=== PATIENT | female | born 1935 | race Caucasian/White ===

== ENCOUNTER 2019-12-03 17:44 | Observation (INO) | payer MEDICARE, SELFPAY ==
[2019-12-03] VITALS (10 sets, daily range): BP systolic 130–138; BP diastolic 51–92; PULSE 73–92; RESP 18–33; TEMP 36.1–37.3; O2SAT 92–100; BMI 25.6
--- NOTE | ~2019-12-03 | CT_ITS ---
EXAMINATION: CT brain wo con EXAM DATE: 12/03/2019 19:54 INDICATION: Weakness. TECHNIQUE: Spiral CT of the head was performed without contrast. Axial, coronal and sagittal images were reviewed. The dose-length product (DLP) for this examination was 605.33 mGy-cm. The exposure w as tailored according to patient size, and iterative reconstruction (ASIR) was used as additional dos e reduction technique. Comparison is made to prior examination from 09/25/2011. FINDINGS: There is no acute intraparenchymal hemorrhage. No evidence of intraparenchymal brain mass lesion. No evidence of acute infarction. Please note that initial head CT has limited sensitivity f or small or acute infarctions. There is mild periventricular and subcortical hypodensity, nonspecific but probably related to small vessel ischemic disease. There is mild prominence of the sulci and v entricles related to cerebral atrophy. There is intracranial carotid arteriosclerosis. There are n o extra-axial collections. There is no mass effect or midline shift. Patient has had bilateral ocul ar lens surgery. Soft tissue is unremarkable. Right-sided mastoid effusion. Sinuses are well aerate d. IMPRESSION: 1. No acute intracranial findings. 2. Chronic age related findings. 3. Right otomastoiditis fusion Reviewed, dictated and finalized at location A.
--- NOTE | ~2019-12-03 | XR_ITS ---
EXAMINATION: XR chest 1V portable EXAM DATE: 12/03/2019 18:59 INDICATION: Weakness, fever. History COPD, CHF. TECHNIQUE: Portable AP frontal chest x-ray was obtained. Comparison is made to prior examination from 07/11/2016. FINDINGS: Patient is rotated to the right. There is cardiomegaly. Cardiac silhouette is larger than o n prior study. No confluent consolidation, pneumothorax or pleural effusion suspected. The bones are osteopenic. There are bony degenerative changes. IMPRESSION: 1. Cardiomegaly. Reviewed, dictated and finalized at location A. IMPRESSION: 1. Cardiomegaly.
--- NOTE | 2019-12-03 17:44 | ED.FEVER ---
HPI - Fever General Chief Complaint: Shortness of Breath/Dyspnea <Danita Cannon MD - Last Filed: 12/03/19 19:47> Stated Complaint: Weakness, fever <Danita Cannon MD - Last Filed: 12/03/19 19:47> Time Seen by Provider: 12/03/19 17:44 <Danita Cannon MD - Last Filed: 12/03/19 19:47> Source: patient and family <Danita Cannon MD - Last Filed: 12/03/19 19:47> Mode of arrival: EMS <Danita Cannon MD - Last Filed: 12/03/19 19:47> Limitations: clinical condition <Danita Cannon MD - Last Filed: 12/03/19 19:47> History of Present Illness HPI Narrative: Patient is an 84-year-old female with a history of COPD who presents for evaluation of altered mental status, fever. Patient daughter is providing most of the history. She states that she has had 48 to 72 hours of intermittent altered mental status from her baseline. Daughter states patient is usually very sharp, but has had increased confusion. Patient currently is alert and oriented to person, place and time. She is denying any headache, chest pain or abdominal pain. Chart for reports feeling diffusely weak. She denies any new productive cough or worsening shortness of breath. She reports subjective fever. Daughter is concerned that perhaps the patient has a urinary tract infection. No recent sick exposures. No known COVID exposures. Patient has stayed mostly at home, family provides much support. Patient is DNR/DNI. <Danita Cannon MD - Last Filed: 12/03/19 19:47> Related Data Home Medications: Home Medications Medication Instructions Recorded Confirmed bupropion HCl 300 mg 24 hr tablet, 300 mg PO .qd tablet 05/21/19 extended release dorzolamide 2 % eye drops 1 drop EACH EYE TID 05/21/19 escitalopram oxalate 20 mg tablet 10 mg PO DAILY 05/21/19 latanoprost 0.005 % eye drops 1 drop EACH EYE QPM 05/21/19 levalbuterol HCl 1.25 mg/3 mL 1.25 mg INHALATION Q12H ml 05/21/19 solution for nebulization methylphenidate HCl 5 mg tablet 5 mg PO DAILY PRN 05/21/19 potassium chloride 20 mEq 20 meq PO DAILY 05/21/19 tablet,extended release(part/cryst) <Danita Cannon MD - Last Filed: 12/03/19 19:47> Allergies/Adverse Reactions: Allergies Allergy/AdvReac Type Severity Reaction Status Date / Time No Known Allergies Allergy Unknown Verified 12/03/19 18:01 <Danita Cannon MD - Last Filed: 12/03/19 19:47> Review of Systems Review of Systems: Narrative: CONSTITUTIONAL: Reports subjective fever and chills CARDIOVASCULAR: Denies chest pain RESPIRATORY: Denies cough, reports chronic dyspnea GASTROINTESTINAL: Denies abdominal pain SKIN: Denies rash MUSCULOSKELETAL: Denies back pain NEUROLOGIC: Denies headache, daughter reports altered mental status <Danita Cannon MD - Last Filed: 12/03/19 19:47> [facility] Past Medical History Medical History: Medical History Anemia in other chronic diseases classified elsewhere Anxiety disorder, unspecified Chronic kidney disease, stage 3 (moderate) Chronic obstructive pulmonary disease, unspecified Cor pulmonale (chronic) Fall at home Mixed hyperlipidemia Other local company intermodal truck driver (current) drug therapy 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
--- NOTE | 2019-12-03 17:45 | ECG_ITS ---
Measurements Intervals [place] Rate: 92 P: 50 WA: 150 QRS: 2 QRSD: 157 T: 160 QT: 425 QTc: 527 Interpretive Statements SINUS RHYTHM ATRIAL PREMATURE COMPLEXES LEFT BUNDLE BRANCH BLOCK BASELINE WANDER- V4-V6 ABNORMAL ECG Electronically Signed On 12-04-2019 7:34:44 CDT by Julius Correa D.O.
[2019-12-03] MEDS: SODIUM CHLORIDE 0.9% IV 500 ML 999 ML IV CONT (18:09)
[2019-12-03] MEDS: SODIUM CHLORIDE 0.9% IV 1,000 ML 999 ML IV CONT (18:10)
[2019-12-03] MEDS: methylPREDNISolone SOD SUCC 125 MG VIAL IV PUSH (18:11)
[2019-12-03 18:13] LABS: Alveolar/Arterial O2 Gradient 4.7 mmHg; Base Excess ABG 6.3 mEq/l (+/-2.0); Carboxyhemoglobin 0.3 % THb (0-2.0); Fractional Inspired Oxygen 36 %; HCO3 ABG 34.3 mEq/l (22.0-26.0); Methemoglobin ABG 0.4 %THb (0-1.5); Oxygen Content ABG 15.3 %vol (16.0-22.0); Oxyhemoglobin 97.7 % THb (90.0-100.0); PO2 ABG 171.9 mmHg (80.0-100.0); PO2 FiO2 Ratio Arterial Blood 4.77 %; Reduced Hemoglobin 1.6 %THb (0-5.0); Total Hemoglobin 10.9 g/dL (12.0-18.0); pH ABG 7.314 (7.350-7.450)
[2019-12-03 18:16] LABS: Device NASAL CANNULA; Modified Allen's Test Pass; Site Drawn RIGHT RADIAL
[2019-12-03 18:56] LABS: Basophils Percent Auto 0.1 % (0.2-1.2); Eosinophils Absolute Auto 0.1 K/mm3 (0-0.3); Eosinophils Percent Auto 1.5 % (0-4.4); Hematocrit 30.4 % (37.0-47.0); Hemoglobin 9.2 g/dL (12.0-15.0); Immature Granulocyte Absolute 0.02 K/mm3 (0.00-0.031); Immature Granulocyte Percent A 0.3 % (0-0.5); Lymphocytes Absolute Auto 1.33 K/mm3 (0.9-3.2); Lymphocytes Percent Auto 19.5 % (18.3-44.2); Mean Corpuscular HGB Conc 30.3 g/dl (32-36); Mean Corpuscular Hemoglobin 27.1 pg (26-34); Mean Corpuscular Volume 89.7 fl (80-100); Mean Platelet Volume 10.9 fl (7.4-10.4); Monocytes Absolute Auto 0.5 K/mm3 (0.1-0.6); Monocytes Percent Auto 6.8 % (2.6-8.5); Neutrophils Absolute Auto 4.9 K/mm3 (1.3-6.7); Neutrophils Percent Auto 71.8 % (45.5-73.1); Platelet Count Result 156 k/mm3 (150-375); Red Blood Count 3.39 M/mm3 (4.2-5.4); White Blood Count 6.8 K/mm3 (4.5-10.0)
[2019-12-03 19:03] LABS: Add Urine Microscopic? YES; Appearance Urine Clear (Clear); Bacteria Urine 4+ /hpf; Bilirubin Urine Negative (Negative); Blood Urine Negative (Negative); Color Urine Yellow (Yellow); Glucose Urine UA 3+ mg/dL (Negative); INR 1.1; Ketones Urine Negative (Negative); Leukocyte Esterase Ur 1+ LEU/UL (Negative); Mucus Urine Rare /lpf; Nitrate Urine Positive (Negative); Partial Thromboplastin Time 30.2 SECONDS (22.3-36.8); Protein Urine Negative (Negative); Prothrombin Time 13.5 Seconds (11.1-14.7); RBC Urine 0-2 /hpf (0-2); Specific Grav Ur 1.017 (1.001-1.035); Squamous Epithelial Cell Urine Few /hpf (Few); Urobilinogen Urine Negative mg/dL (<2.0)
[2019-12-03 19:08] LABS: Alanine Aminotransferase 9 U/L (4-35); Albumin Level 3.3 g/dL (3.5-5.1); Alkaline Phosphatase 78 U/L (38-126); Anion Gap 5 mmol/L (8-16); Aspartate Amino Transferase 17 U/L (14-36); Bilirubin,Total 0.3 mg/dL (0.2-1.3); Blood Urea Nitrogen 32 mg/dL (7-17); Calcium 8.2 mg/dL (8.4-10.2); Carbon Dioxide 34 mmol/L (22-30); Chloride 100 mmol/L (98-107); Estimated CRCL calculation 27 ml/min; Estimated Glomerular Filt Rate 43; Glucose 135 mg/dL (65-105); Potassium 3.7 mmol/L (3.4-5.0); Sodium 139 mmol/L (137-145)
[2019-12-03] MEDS: MAGNESIUM SULF 2 GM/WATER 50ML 2 GM/50 ML BAG IVPB (19:16)
[2019-12-03 19:18] LABS: NT Pro B Type Natriuretic Pept 4430 PG/ML (5-100); Troponin I 0.261 ng/mL (0.000-0.034)
[2019-12-03] MEDS: ALBUTEROL SULFATE NEB 2.5 MG/0.5 ML INH 5 MG INHALATION (20:08)
[2019-12-03] MEDS: IPRATROPIUM BR 0.02% INH SOLN 0.5 MG/2.5 ML VIAL INHALATION (20:08)
[2019-12-03] MEDS: ASPIRIN 81 MG CHEWABLE TABLET 324 MG PO (20:24)
[2019-12-03] MEDS: FUROSEMIDE INJ 40 MG/4 ML VIAL 20 MG IV PUSH (20:25)
--- NOTE | 2019-12-03 22:43 | PC.NURSE ---
This patient, Jacinta Ochoa, was admitted to IMU Room 231-01 on 12/03/19 at 2225. Patient/family oriented to hospital policies and general routines including ID bracelet, bed and alarms, visiting hours, pain management, procedures, bathroom and other care routines, personal items, smoking policy, room service/diet, and visiting hours. Valuables list has been completed. Information on how to activate the Rapid Response Team has been discussed. Patient/Family are encouraged to report perceived risks to care and to ask questions if they do not understand what they are told or what they should do.
--- NOTE | 2019-12-03 23:34 | PM.IMHP ---
H&P: HPI History of Present Illness Date/Time: 12/03/19 23:34 Chief complaint: Hypercarbic respiratory failure, UTI, Acute CHF Narrative: This is an 84 year old Diabetic female with known COPD who presented to the hospital with a complaint of generalized weakness, shortness of breath, and altered mental status. Associated symptoms included fever. Her daughter had reported that the patient has increased confusion over the past few days. The patient denies any chest pain, abdominal pain, dysuria, nausea, vomiting or diarrhea. Brain CT was obtained and was negative for any acute intracranial findings. ABG demonstrated hypercapnic respiratory failure. The patient is a DNR/DNI code status and does not want any aggressive therapy. The patient refused to be placed on a bipap and her daughter is in agreement. The patient simply wants oxygen and medication but no invasive therapy. No other complaints. 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 Presence of intraocular lens Prurigo nodularis Restless legs syndrome Risk for falls Thoracic aortic aneurysm without rupture Type 2 diabetes mellitus with unspecified complications Unspecified glaucoma Surgical History Surgical History History of appendectomy History of bilateral oophorectomy (~1971) History of hysterectomy (~1971) History of tonsillectomy Family History Family History Sibling Heart disease Father Lymphoma Social History Social History Smoking packs per day: 1 Smoking cigarettes per day: 20.0 Years smoked: 25 Smoking pack-years: 25.00 Smoking status: Former smoker Tobacco type: cigarettes Alcohol intake: never Substance use: never Substance use type: does not use Gender identity (if verbalized by the patient): Female Sexual Orientation (if Verbalized by the Patient): Straight or Heterosexual Spiritual care concerns: No Meds Home Medications and Allergies Home Medications Medication Instructions Recorded Confirmed Type umeclidinium 62.5 mcg-vilanterol 1 inhalation INHALATION DAILY #180 03/05/19 12/03/19 Rx 25 mcg/actuation powdr for each inhalation roflumilast 500 mcg tablet 500 mcg PO DAILY #90 tablet 04/01/19 12/03/19 Rx albuterol sulfate 90 mcg/actuation 2 puff INHALATION Q4-6H PRN #8.5 gm 04/12/19 12/03/19 Rx aerosol inhaler prednisone 2.5 mg tablet 2.5 mg PO DAILY #90 tablet 04/21/19 12/03/19 Rx furosemide 20 mg tablet 20 mg PO BID #180 tablet 05/03/19 12/03/19 Rx dorzolamide 2 % eye drops 1 drop EACH EYE DAILY 05/21/19 12/03/19 History escitalopram oxalate 20 mg tablet 10 mg PO DAILY 05/21/19 12/03/19 History levalbuterol HCl 1.25 mg/3 mL 1.25 mg INHALATION Q12H ml 05/21/19 12/03/19 History solution for nebulization potassium chloride 20 mEq 20 meq PO DAILY 05/21/19 12/03/19 History tablet,extended release(part/cryst) semaglutide 7 mg tablet 7 mg PO DAILY #90 tablet 05/21/19 12/03/19 Rx empagliflozin 10 mg tablet 10 mg PO DAILY #90 tablet 06/07/19 12/03/19 Rx alprazolam 1 mg tablet 1 mg PO BID PRN #180 tablet 06/23/19 12/03/19 Rx alprazolam 0.5 mg PO BID 12/03/19 12/03/19 History armodafinil [Nuvigil] 50 mg PO QAM 12/03/19 12/03/19 History bimatoprost [Lumigan] 1 drp OPHTHALMIC (EYE) HS 12/03/19 12/03/19 History ergoca
[2019-12-04] VITALS (15 sets, daily range): BP systolic 125–160; BP diastolic 49–64; PULSE 67–98; RESP 18–24; TEMP 36–36.6; O2SAT 94–98
[2019-12-04 00:18] LABS: Troponin I 0.274 ng/mL (0.000-0.034)
[2019-12-04] MEDS: methylPREDNISolone SOD SUCC 125 MG VIAL 60 MG IV PUSH ×5 (00:47→23:22)
[2019-12-04] MEDS: ALBUTEROL SULFATE NEB 2.5 MG/0.5 ML INH 5 MG INHALATION ×2 (02:05→08:28)
[2019-12-04] MEDS: IPRATROPIUM BR 0.02% INH SOLN 0.5 MG/2.5 ML VIAL INHALATION ×2 (02:05→08:28)
[2019-12-04 02:24] LABS: Troponin I 0.241 ng/mL (0.000-0.034)
[2019-12-04 05:35] LABS: Hematocrit 31.6 % (37.0-47.0); Hemoglobin 9.5 g/dL (12.0-15.0); Immature Granulocyte Absolute 0.04 K/mm3 (0.00-0.031); Immature Granulocyte Percent A 0.8 % (0-0.5); Lymphocytes Percent Auto 6.2 % (18.3-44.2); Mean Corpuscular HGB Conc 30.1 g/dl (32-36); Mean Corpuscular Hemoglobin 26.8 pg (26-34); Mean Corpuscular Volume 89.3 fl (80-100); Mean Platelet Volume 11.2 fl (7.4-10.4); Monocytes Percent Auto 0.4 % (2.6-8.5); Neutrophils Absolute Auto 4.5 K/mm3 (1.3-6.7); Neutrophils Percent Auto 92.6 % (45.5-73.1); Platelet Count Result 136 k/mm3 (150-375); Red Blood Count 3.54 M/mm3 (4.2-5.4); Red Cell Distribution Width 12.8 % (11.5-14.5); White Blood Count 4.8 K/mm3 (4.5-10.0)
[2019-12-04 05:47] LABS: Anion Gap 8 mmol/L (8-16); Blood Urea Nitrogen 32 mg/dL (7-17); Calcium 8.5 mg/dL (8.4-10.2); Carbon Dioxide 29 mmol/L (22-30); Chloride 102 mmol/L (98-107); Estimated CRCL calculation 23 ml/min; Estimated Glomerular Filt Rate 33; Glucose 259 mg/dL (65-105); Potassium 4.2 mmol/L (3.4-5.0); Sodium 139 mmol/L (137-145)
[2019-12-04] MEDS: rOPINIRole HCL 1 MG TABLET PO ×2 (06:02→20:39)
[2019-12-04] MEDS: DORZOLAMIDE HCL 2% OPHTH DROPS 1 DROP EACH EYE (10:31)
[2019-12-04] MEDS: FUROSEMIDE 20 MG TABLET PO ×2 (10:32→18:13)
[2019-12-04] MEDS: ALPRAZolam 0.5 MG TABLET PO ×3 (10:32→23:27)
[2019-12-04] MEDS: MIRABEGRON 50 MG ER TABLET PO (10:32)
[2019-12-04] MEDS: ASPIRIN 81 MG CHEWABLE TABLET PO (10:33)
[2019-12-04] MEDS: predniSONE 2.5 MG TABLET PO (10:33)
[2019-12-04] MEDS: ROFLUMILAST 500 MCG TABLET PO (10:33)
[2019-12-04] MEDS: ESCITALOPRAM OXALATE 10 MG TABLET PO (10:33)
[2019-12-04 10:43] LABS: Glucose Point of Care 292 (65-105)
[2019-12-04] MEDS: ALBUTEROL SULFATE (*SP) AEROSOL 1 PUFF 2 PUFF INHALATION ×3 (12:12→20:57)
[2019-12-04 13:02] LABS: Glucose Point of Care 273 (65-105)
[2019-12-04] MEDS: INSULIN ASPART (*BKC) 100 UNITS/ML SUB-Q (13:20)
--- NOTE | 2019-12-04 14:27 | PCPTNOTE ---
PT correction to screen...patient is not appropriate for therapy, she is declining BI-PAP, does not want AGGRESSIVE THERAPY , SHE ONLY WANTS 02 AND MEDICATION
--- NOTE | 2019-12-04 17:00 | PM.IMPN ---
Progress Note: A&P Assessment and Plan (1) Acute hypercapnic respiratory failure: Code(s): J96.02 - Acute respiratory failure with hypercapnia Status: Acute Assessment and Plan: The patient has been admitted to IMU, Continue oxygen supplementation. She is refusing Bipap or intubation. The family verbalized to ER staff that they are considering hospice. Continuous pulse oximetry. Bronchodilators. 12/04/19 17:00 patient is 84-year-old female with history of chronic respiratory failure on home oxygen 3 L at rest and 5 L with exertion, patient was brought to the emergency department by her daughter with complaint increased cough, shortness of breath and confusion for last 3 days, ABG showed patient has hypercapnic respiratory failure however patient is refusing BiPAP or intubation as patient is DNR DNI, currently patient states feeling better not a short of breath as when she arrived, patient is also found to have UTI and being treated with Rocephin, patient's family requested conservative management to stabilize the patient and would like to take her home as soon as possible, will continue Solu-Medrol updraft continue to monitor, will have a PT OT evaluate the patient further recommendation to follow (2) Elevated troponin: Code(s): R79.89 - Other specified abnormal findings of blood chemistry Status: Acute Assessment and Plan: Likely secondary to CHF. r/o ACS- trend troponin The patient and her family have verbalized that they do not want anything done for her elevated troponin. (3) Congestive heart failure: Qualifiers: Heart failure type: other Qualified Code(s): I50.9 - Heart failure, unspecified Code(s): I50.9 - Heart failure, unspecified Status: Chronic Assessment and Plan: Monitor Is and Os, Lasix therapy, Monitor fluid status. (4) Chronic obstructive pulmonary disease, unspecified: Qualifiers: COPD type: unspecified COPD Qualified Code(s): J44.9 - Chronic obstructive pulmonary disease, unspecified Code(s): J44.9 - Chronic obstructive pulmonary disease, unspecified Status: Chronic Assessment and Plan: Bronchodilators. (5) Type 2 diabetes mellitus with unspecified complications: Code(s): E11.8 - Type 2 diabetes mellitus with unspecified complications Status: Chronic Assessment and Plan: Accuchecks, SSI Coverage, Hypoglycemic protocol. (6) Unspecified glaucoma: Qualifiers: Glaucoma type: unspecified Laterality: unspecified laterality Qualified Code(s): H40.9 - Unspecified glaucoma Code(s): H40.9 - Unspecified glaucoma Status: Chronic Assessment and Plan: Continue home eye drops. (7) Chronic kidney disease, stage 3 (moderate): Code(s): N18.3 - Chronic kidney disease, stage 3 (moderate) Status: Chronic Assessment and Plan: Monitor renal function. Avoid nephrotoxic agents, renally dose medications. Subjective Date/time seen: 12/04/19 17:00 patient is 84-year-old female with history of chronic respiratory failure on home oxygen 3 L at rest and 5 L with exertion, patient was brought to the emergency department by her daughter with complaint increased cough, shortness of breath and confusion for last 3 days, ABG showed patient has hypercapnic respiratory failure however patient is refusing BiPAP or intubation as patient is DNR DNI, currently patient states feeling better not a short of breath as when she arrived, patient is also found to have UTI and being treated with Rocephin, patient's family requested conservative management to stabilize the patient and would like to take her home as soon as possible, will continue Solu-Medrol updraft continue to monitor, will have a PT OT evaluate the patient further recommendation to follow Review of Systems Review of Systems: All systems reviewed & are unremarkable except as noted in HPI and below Exam Narrative:
[2019-12-04 17:19] LABS: Glucose Point of Care 194 (65-105)
[2019-12-04 20:19] LABS: Glucose Point of Care 275 (65-105)
[2019-12-04] MEDS: LATANOPROST 0.005% OP SOLN 2.5 ML BTL 1 DROP EACH EYE (20:38)
--- NOTE | 2019-12-04 21:29 | PC.NURSE ---
Received transfer from [facility] at [id number]
--- NOTE | 2019-12-04 22:29 | PC.NURSE ---
This patient, Jacinta Ochoa, was transferred to room 258 on 12/04/19 at 2125. Personal belongings sent with patient. Belongings list checked and signed with receiving. Report given to KAMILLA Harris. Appropriate documentation sent with patient.
[2019-12-05] VITALS: BP 158/119; PULSE 110; RESP 20; TEMP 36.4; O2SAT 100
[2019-12-05] MEDS: ALBUTEROL SULFATE (*SP) AEROSOL 1 PUFF 2 PUFF INHALATION ×4 (00:28→12:08)
[2019-12-05 05:57] VITALS: BP 141/69; PULSE 87; RESP 20; TEMP 36.9; O2SAT 98
[2019-12-05 06:10] LABS: Hematocrit 29.7 % (37.0-47.0); Hemoglobin 9.1 g/dL (12.0-15.0); Mean Corpuscular HGB Conc 30.6 g/dl (32-36); Mean Corpuscular Hemoglobin 27.2 pg (26-34); Mean Corpuscular Volume 88.7 fl (80-100); Mean Platelet Volume 11.5 fl (7.4-10.4); Platelet Count Result 153 k/mm3 (150-375); Red Blood Count 3.35 M/mm3 (4.2-5.4); Red Cell Distribution Width 13.1 % (11.5-14.5); White Blood Count 7.9 K/mm3 (4.5-10.0)
[2019-12-05] MEDS: methylPREDNISolone SOD SUCC 125 MG VIAL 60 MG IV PUSH ×2 (06:16→12:28)
[2019-12-05 06:25] LABS: Anion Gap 5 mmol/L (8-16); Blood Urea Nitrogen 39 mg/dL (7-17); Calcium 8.9 mg/dL (8.4-10.2); Carbon Dioxide 33 mmol/L (22-30); Chloride 101 mmol/L (98-107); Estimated CRCL calculation 24 ml/min; Estimated Glomerular Filt Rate 36; Glucose 254 mg/dL (65-105); Potassium 3.8 mmol/L (3.4-5.0); Sodium 139 mmol/L (137-145)
[2019-12-05 09:18] LABS: Glucose Point of Care 228 (65-105)
[2019-12-05] MEDS: ALPRAZolam 0.5 MG TABLET PO (10:00)
[2019-12-05] MEDS: ROFLUMILAST 500 MCG TABLET PO (10:00)
[2019-12-05] MEDS: ESCITALOPRAM OXALATE 10 MG TABLET PO (10:00)
[2019-12-05] MEDS: MIRABEGRON 50 MG ER TABLET PO (10:00)
[2019-12-05] MEDS: ASPIRIN 81 MG CHEWABLE TABLET PO (10:00)
[2019-12-05] MEDS: DORZOLAMIDE HCL 2% OPHTH DROPS 1 DROP EACH EYE (10:00)
[2019-12-05] MEDS: predniSONE 2.5 MG TABLET PO (10:00)
[2019-12-05] MEDS: FUROSEMIDE 20 MG TABLET PO (10:00)
[2019-12-05] MEDS: INSULIN ASPART (*BKC) 100 UNITS/ML SUB-Q ×2 (10:00→12:27)
[2019-12-05 10:10] LABS: Glucose Point of Care 293 (65-105)
[2019-12-05 12:28] LABS: Glucose Point of Care 211 (65-105)
--- NOTE | 2019-12-05 13:40 | PM.DS ---
DS: Admitting Diagnosis Admitting Diagnosis Admitting Diagnosis: Hypercarbic respiratory failure, UTI, Acute CHF DS: Discharge Diagnosis Discharge Diagnosis (1) Acute hypercapnic respiratory failure: Code(s): J96.02 - Acute respiratory failure with hypercapnia Status: Acute Assessment and Plan: The patient has been admitted to IMU, Continue oxygen supplementation. She is refusing Bipap or intubation. The family verbalized to ER staff that they are considering hospice. Continuous pulse oximetry. Bronchodilators. 12/04/19 17:00 Chief complaint: Hypercarbic respiratory failure, UTI, Acute CHF Narrative: This is an 84 year old Diabetic female with known COPD who presented to the hospital with a complaint of generalized weakness, shortness of breath, and altered mental status. Associated symptoms included fever. Her daughter had reported that the patient has increased confusion over the past few days. The patient denies any chest pain, abdominal pain, dysuria, nausea, vomiting or diarrhea. Brain CT was obtained and was negative for any acute intracranial findings. ABG demonstrated hypercapnic respiratory failure. The patient is a DNR/DNI code status and does not want any aggressive therapy. The patient refused to be placed on a bipap and her daughter is in agreement. The patient simply wants oxygen and medication but no invasive therapy. No other complaints. (2) Elevated troponin: Code(s): R79.89 - Other specified abnormal findings of blood chemistry Status: Acute Assessment and Plan: Likely secondary to CHF. r/o ACS- trend troponin The patient and her family have verbalized that they do not want anything done for her elevated troponin. (3) Congestive heart failure: Qualifiers: Heart failure type: other Qualified Code(s): I50.9 - Heart failure, unspecified Code(s): I50.9 - Heart failure, unspecified Status: Chronic Assessment and Plan: Monitor Is and Os, Lasix therapy, Monitor fluid status. (4) Chronic obstructive pulmonary disease, unspecified: Qualifiers: COPD type: unspecified COPD Qualified Code(s): J44.9 - Chronic obstructive pulmonary disease, unspecified Code(s): J44.9 - Chronic obstructive pulmonary disease, unspecified Status: Chronic Assessment and Plan: Bronchodilators. (5) Type 2 diabetes mellitus with unspecified complications: Code(s): E11.8 - Type 2 diabetes mellitus with unspecified complications Status: Chronic Assessment and Plan: Accuchecks, SSI Coverage, Hypoglycemic protocol. (6) Unspecified glaucoma: Qualifiers: Glaucoma type: unspecified Laterality: unspecified laterality Qualified Code(s): H40.9 - Unspecified glaucoma Code(s): H40.9 - Unspecified glaucoma Status: Chronic Assessment and Plan: Continue home eye drops. (7) Chronic kidney disease, stage 3 (moderate): Code(s): N18.3 - Chronic kidney disease, stage 3 (moderate) Status: Chronic Assessment and Plan: Monitor renal function. Avoid nephrotoxic agents, renally dose medications. DS: Summary Hospital Course Reason for hospitalization: Chief complaint: Hypercarbic respiratory failure, UTI, Acute CHF Narrative: This is an 84 year old Diabetic female with known COPD who presented to the hospital with a complaint of generalized weakness, shortness of breath, and altered mental status. Associated symptoms included fever. Her daughter had reported that the patient has increased confusion over the past few days. The patient denies any chest pain, abdominal pain, dysuria, nausea, vomiting or diarrhea. Brain CT was obtained and was negative for any acute intracranial findings. ABG demonstrated hypercapnic respiratory failure. The patient is a DNR/DNI code status and does not want any aggressive therapy. The patient refused to be placed on a bipap and her daughter
[2019-12-05 14:00] VITALS: BP 137/69; PULSE 84; RESP 16; TEMP 37.2; O2SAT 99
== END 2019-12-05 15:41 | disposition home or self-care (01) ==
LOC: ANHED 20:08 → ANHIMU 23:44 → ANH2MED 12-05 13:39 → ANHIMU 12-07 15:06
PROVIDERS: Admitting Provider Family Medicine; Emergency Provider Emergency Medicine; PCP Family Medicine; Visit Provider Family Medicine
DX: J96.22 Acute and chronic respiratory failure with hypercapnia (principal); N39.0 Urinary tract infection, site not specified; B96.20 Unspecified Escherichia coli [E. coli] as the cause of diseases classified elsewhere; J44.9 Chronic obstructive pulmonary disease, unspecified; I13.0 Hypertensive heart and chronic kidney disease with heart failure and stage 1 through stage 4 chronic kidney disease, or unspecified chronic kidney disease; N18.3 Chronic kidney disease, stage 3 (moderate); I50.9 Heart failure, unspecified; R74.8 Abnormal levels of other serum enzymes; I27.81 Cor pulmonale (chronic); Z66 Do not resuscitate; F17.210 Nicotine dependence, cigarettes, uncomplicated; I44.7 Left bundle-branch block, unspecified; E11.22 Type 2 diabetes mellitus with diabetic chronic kidney disease; I27.20 Pulmonary hypertension, unspecified; D63.1 Anemia in chronic kidney disease; I71.2 Thoracic aortic aneurysm, without rupture; G25.81 Restless legs syndrome; E78.2 Mixed hyperlipidemia; H40.9 Unspecified glaucoma; Z79.4 Long term (current) use of insulin
CPT/HCPCS: 36415; 36600; 70450; 71045; 80048; 80053; 81001; 82375; 82805; 83050; 83605; 83880; 84484; 85025; 85027; 85610; 85730; 86140; 87040; 87077; 87086; 87088; 87186; 93005; 94002; 94640; 96361; 96365; 96367; 96375; 96376; 99291; A9270; G0378; J0131; J0696; J1815; J1940; J2930; J3475; J7030; J7040